=== PATIENT | female | born 1970 | race Caucasian/White ===

== ENCOUNTER 2020-05-27 05:04 | Emergency (ER) | payer OTHER ==
[~2020-05-27] VITALS: Ht 167.6 cm; Wt 83.9 kg
[2020-05-27] MEDS ORDERED: TRAMADOL HCL 50 MG TAB PO ONE (05:15)
[2020-05-27] MEDS ORDERED: KETOROLAC TROMETHAMINE 60 MG/2 ML VIAL IM ONE (05:15)
[2020-05-27] MEDS ORDERED: ORPHENADRINE CITRATE 30 MG/ML VIAL IM ONE (05:15)
--- NOTE | 2020-05-27 05:24 | Emergency Department Note ---
History of Present Illnes History of Present Illness Chief Complaint: General Medicine Complaints History of Present Illness This is a 49 year old female reports pain to left lumbar back radiating to left thigh after pt states, "I stepped wrong yesterday and twisted my back." Pt reports hx pain to same site; . Historian: Patient Arrival Mode: [facility] Nurses Assistant Required: No Onset (how long ago): day(s) (1) Location: LEFT LOWER BACK Quality: PAIN Radiation: Reports other (LEFT BUTTOCK) Severity: severe Onset quality: sudden Duration (how long): day(s) (1) Timing of current episode: constant Progression: worsening Chronicity: recurrent Context: Reports trauma/injury ( ABOVE); Denies recent illness, Denies recent surgery Relieving factors: none Exacerbating factors: movement Associated symptoms: Reports denies other symptoms Past Medical/Family History Physician Review I have reviewed the patient's past medical and family history. Any updates have been documented here. Past Medical History Recent Fever: No Clinical Suspicion of Infectio: No New/Unexplained Change in Ment: No Social History Smoking Cessation: Never Smoker Alcohol Use: Occasional Any Illegal Drug Use: No Family History Family history of heart diseas: No Review of Systems Review of Systems Constitutional: Reports no symptoms EENTM: Reports no symptoms Cardiovascular: Reports no symptoms Respiratory: Reports no symptoms Gastrointestinal: Reports no symptoms Genitourinary: Reports no symptoms Musculoskeletal: Reports as per HPI Integumentary: Reports no symptoms Neurological: Reports no symptoms Psychological: Reports no symptoms Endocrine: Reports no symptoms Hematological/Lymphatic: Reports no symptoms Physical Exam Related Data Allergies: Coded Allergies: scopolamine (Verified Allergy, Intermediate, 05/27/20) Triage Vital Signs Vital Signs Date Time Temp Pulse Resp B/P (MAP) Pulse Ox O2 Delivery O2 Flow Rate FiO2 05/27/20 05:13 98.2 84 18 127/75 98 Room Air Vital signs reviewed: Yes Physical Exam CONSTITUTIONAL Constitutional: Present well-developed, Present well-nourished HENT HENT: Present normocephalic, Present atraumatic, Present oropharynx clear/moist, Present nose normal HENT L/R: Present left ext ear normal, Present right ext ear normal EYES Eyes: Reports PERRL, Reports conjunctivae normal NECK Neck: Present ROM normal PULMONARY Pulmonary: Present effort normal, Present breath sounds normal CARDIOVASCULAR Cardiovascular: Present regular rhythm, Present heart sounds normal, Present capillary refill normal, Present normal rate GASTROINTESTINAL Abdominal: Present soft, Present nontender, Present bowel sounds normal GENITOURINARY Genitourinary: Present exam deferred SKIN Skin: Present warm, Present dry MUSCULOSKELETAL TENDERNESS TO LEFT LOWER BACK, PAIN WORSE WITH MOVEMENT, PULSES INTACT NEUROLOGICAL Neurological: Present alert, Present oriented x 3, Present no gross motor or sensory deficits PSYCHOLOGICAL Psychological: Present mood/affect normal, Present judgement normal Assessment & Plan Medical Decision Making MDM PT WITH LOW BACK PAIN NORFLEX 60 MG IM ORDERED TORADOL 60 MG IM ORDERED TRAMADOL 50 MG PO ORDERED Assessment & Plan Final Impression: (1) Sciatica, left side Depart Disposition: HOME, SELF-CARE Last Vital Signs Date Time Temp Pulse Resp B/P (MAP) Pulse Ox O2 Delivery O2 Flow Rate FiO2 05/27/20 05:13 98.2 84 18 127/75 98 Room Air Medications in the ED Orphenadrine Citrate 60 mg ONCE ONCE IM ; Start 05/27/20 at 05:15; Stop 05/27/20 at 05:16; Status DC Ketorolac Tromethamine 60 mg ONCE ONCE IM ; Start 05/27/20 at 05:15; Stop 05/27/20 at 05:16; Status UNV Tramadol HCl 50 mg ONCE ONCE PO ; Start 05/27/20 at 05:15; Stop 05/27/20 at 05:16; Status UNV PAUL MARTE MD May 27, 2020 05:24
[2020-05-27] MEDS ORDERED: KETOROLAC TROMETHAMINE 60 MG/2 ML VIAL ONE (05:30)
[2020-05-27] MEDS ORDERED: TRAMADOL HCL 50 MG TAB ONE (05:36)
--- NOTE | 2020-05-27 07:20 | NUR ---
DISCHARGE PAPERWORK PROVIDED TO PATIENT AND . PT INSTRUCTED ON PRESCRIPTION AND NEED FOR FOLLOW-UP. STATES THAT "SHE NEEDS AN MRI BUT THEY WON'T DO ONE AN OUTPATIENT BECAUSE THE HOSPITAL WON'T GET PAID FOR IT. I KNOW WHAT I'M GOING TO TELL HER TO DO, I'M JUST GOING TO TELL HER TO COME IN HERE AND SAY SHE LOSS CONTROL OF HER BLADDER AND AND HER BOWELS THEN THEY WILL HAVE TO DO IT." PT COUNSELLED THAT SHOULD NOT BE DISHONEST ABOUT SYMPTOMS TO GET AN MRI DONE. STATES "I KNOW HOW THE SYSTEM WORKS, PEOPLE DO IT ALL THE TIME, THEY LIE ABOUT CHEST PAIN AND STOMACH PAIN TO GET MEDICATION OR GET ADMITTED, AND IF SHE SAYS THAT SHE LOSS CONTROL OF HER BLADDER AND BOWELS SHE'LL GET THE TEST."
--- NOTE | 2020-05-27 07:24 | NUR ---
PATIENT WAS PROVIDED EDUCATION REGARDING SCIATICA AND INTERVENTIONS NEEDED. EDUCATION PROVIDED ON PRESCRIPTIONS GIVEN. PATIENT IS NOT SATISFIED WITH PAIN MANAGEMENT INTERVENTIONS DONE, MD IS AWARE. IN ADDITION, PATIENT'S WAS NOT SATISFIED WITH CARE PROVIDED. PATIENTS STATES HE WANTS AN MRI, REORIENTATION PROVIDED TO PATIENTS STATING THAT MD PROVIDER DEEMED SUCH INTERVENTION NOT APPROPIATE. FURTHER WENT ON TO EXPLAIN THAT HE KNEW A WAY TO GET AN MRI IN THE ED IF HE " COACHED" HIS . ONCE AGAIN, EDUCATION WAS PROVIDED TO ABOUT NOT GIVING FALSE INFORMATION TO AN MD FOR IMAGING STUDIES.
[2020-05-27 07:41] VITALS: BP 105/76
== END 2020-05-27 07:28 | disposition home or self-care (01) ==
LOC: ER 05:47
DX: M54.42 Lumbago with sciatica, left side (principal); X50.1XXA Overexertion from prolonged static or awkward postures, initial encounter; Y93.01 Activity, walking, marching and hiking
CPT/HCPCS: 99283; J1885; J2360